=== PATIENT | male | born 1945 | race Caucasian/White ===

== ENCOUNTER 2020-12-01 10:07 | Emergency (ER) | payer MEDICARE, OTHER, SELFPAY ==
[2020-12-01] VITALS (23 sets, daily range): BP systolic 99–150; BP diastolic 57–72; PULSE 70–84; RESP 20–32; TEMP 35.9–36.5; O2SAT 98–100
--- NOTE | 2020-12-01 10:17 | ECG_ITS ---
Measurements Intervals [place] Rate: 71 P: PA: 0 QRS: -3 QRSD: 145 T: -54 QT: 431 QTc: 470 Interpretive Statements ELECTRONIC VENTRICULAR PACEMAKER WITH INHIBITION UNDERLYINAG ATRIAL TACHYCARDIA/FLUTTER NO FURTHER INTERPRETATION IS POSSIBLE ABNORMAL ECG Electronically Signed On 12-01-2020 11:17:03 LINE PALLETIZER by Ej Garcia D.O.
--- NOTE | 2020-12-01 10:41 | ED.GENADULT ---
HPI - General Adult General Chief complaint: Syncope Stated complaint: syncopal Source: patient and family Mode of arrival: EMS Limitations: no limitations History of Present Illness HPI narrative: 74 years old white male, got up got up to go to the bathroom, felt dizzy and possible loss of consciousness, daughter found him on the floor of the bathroom awake, alert and oriented x4. Patient feels weak all over and dizzy if he stands up. Patient is status post CABG, valve replacement, and pacemaker placement in the last few days, got discharged from [facility] yesterday. Patient reports massive diarrhea over the last 24 hours at least 10 times since last night. Patient on Xarelto. Currently patient denying any complaints. Related Data Home Medications Medication Instructions Recorded Confirmed aspirin mg PO DAILY 12/01/20 atorvastatin HS 12/01/20 furosemide DAILY 12/01/20 glimepiride mg DAILY 12/01/20 lisinopril 10 mg DAILY 12/01/20 metoprolol tartrate BID 12/01/20 oxycodone-acetaminophen See Rx Instructions .ROUTE 12/01/20 .COMPLEX PRN pioglitazone mg DAILY 12/01/20 rivaroxaban 20 mg PO DAILY 12/01/20 Allergies Allergy/AdvReac Type Severity Reaction Status Date / Time Penicillins Allergy Unknown Verified 12/01/20 11:02 Review of Systems Review of Systems: Narrative: CONSTITUTIONAL: Denies fever, chills, or sweats. EYES: Denies visual changes, redness, or discharge. ENT: Denies rhinorrhea, congestion, sore throat, or otalgia. CARDIOVASCULAR: Denies chest pain, palpitations, or edema. RESPIRATORY: Denies cough or dyspnea. GASTROINTESTINAL: Denies abdominal pain, nausea, vomiting, or diarrhea. GENITOURINARY: Denies dysuria or hematuria. SKIN: Denies rash or itching. MUSCULOSKELETAL: Denies back pain, joint pain, or myalgia. NEUROLOGIC: Denies headache, numbness, or weakness. PSYCHIATRIC: Denies anxiety or depression. PMFSH Social History Social History Gender identity (if verbalized by the patient): Male Exam Narrative: Exam Narrative: General appearance: Well-developed, well-nourished, ill looking, pale, oxygen by nasal cannula on, daughter at the bedside Skin: Pale, scattered area of bruises of the lower extremities Head: Normocephalic, nontraumatic Eyes: Clear conjunctiva ENT: Oropharynx normal, ears normal, nose normal Neck: Supple, nontender Chest and respiratory: Airway patent, no respiratory distress, no accessory muscle use Heart: Regular rate/rhythm Abdomen: Soft, nontender, no organomegaly, quiet bowel sounds, rectal exam showed dark blackish liquid stool, guaiac positive Vascular: Normal peripheral pulses, normal capillary refill. Musculoskeletal: Normal range of motion, nontender back Neurologic: Alert and oriented ?3, BLOCK GREASER is normal as tested, no gross motor deficit Course Course Emergency Course: Stable Consultations Consultation #1: Dr. López/hospitalist at [facility], accepted transfer Date: 12/01/20 Time: 11:28 Vital Signs Vital signs: Vital Signs Pulse Rate 74 12/01/20 10:22 Respiratory Rate 20 12/01/20 10:22 Blood Pressure 110/62 12/01/20 10:22 Pulse Oximetry 100 12/01/20 10:22 Pulse Rate 73 12/01/20 10:36 Respiratory Rate 26 H 12/01/20 10:36 Blood Pressure 99/61 L 12/01/20 10:36 Pulse Oximetry 100 12/01/20 10:36 Medical Decision Making [facility] Narrative Medical decision making narrative: Patient presents with dizziness, syncope, bloody diarrhea. Labs, IV fluid, type and screen, Protonix IV ordered. Further plan to follow Differential Diagnosis Differential Diagnosis: GI bleed, ortho
[2020-12-01] MEDS: PANTOPRAZOLE SODIUM IV 40 MG VIAL IV PUSH (11:02)
[2020-12-01 11:06] LABS: Mean Corpuscular HGB Conc 31.9 g/dl (32-36); Mean Corpuscular Hemoglobin 29.1 pg (26-34); Mean Corpuscular Volume 91.5 fl (80-100); Mean Platelet Volume 10.6 fl (7.4-10.4); Platelet Count Result 384 k/mm3 (150-375); Red Blood Count 2.23 M/mm3 (4.6-6.20); Red Cell Distribution Width 13.4 % (11.5-14.5); White Blood Count 19.9 K/mm3 (4.5-10.0)
[2020-12-01 11:18] LABS: Alanine Aminotransferase 39 U/L (4-50); Alkaline Phosphatase 53 U/L (38-126); Anion Gap 14 mmol/L (8-16); Aspartate Amino Transferase 72 U/L (17-59); Bilirubin,Total 0.5 mg/dL (0.2-1.3); Blood Urea Nitrogen 53 mg/dL (9-20); Calcium 6.9 mg/dL (8.4-10.2); Carbon Dioxide 17 mmol/L (22-30); Chloride 100 mmol/L (98-107); Estimated CRCL calculation 69 ml/min; Estimated Glomerular Filt Rate > 60; Glucose 275 mg/dL (75-110); Hematocrit 20.4 % (42.0-52.0); Hemoglobin 6.5 g/dL (14.0-18.0); Potassium 4.3 mmol/L (3.4-5.0); Sodium 131 mmol/L (137-145)
[2020-12-01 11:19] LABS: INR 1.2; Prothrombin Time 15.7 Seconds (11.1-14.7)
[2020-12-01 11:20] LABS: Anisocytosis 1+ (NORMAL); Band Neutrophils Percent 3 % (0-6); Lymphocytes Absolute Manual 1.79 K/mm3 (1.1-4.5); Metamyelocytes Percent 1 %; Monocytes Absolute Manual 1.19 K/mm3 (0.1-0.90); Monocytes Percent Manual 6 % (3-9); Neutrophils Absolute Manual 16.71 K/mm3 (1.3-6.7); Neutrophils Percent Manual 81 % (46-73); Nucleated Red Blood Cells 1 %; Partial Thromboplastin Time 30.4 SECONDS (22.3-36.8); Platelet Estimate Adequate (Adequate); Total Cells Counted 100
--- NOTE | 2020-12-01 11:20 | PC.NURSE ---
pt xander O2 @ @ LPM NC. turned down from 4 LPM
[2020-12-01 11:21] LABS: Hypochromasia 1+ (NORMAL); Microcytosis 1+ (NORMAL)
[2020-12-01 11:34] LABS: Troponin I 0.436 ng/mL (0.000-0.034)
--- NOTE | 2020-12-01 11:44 | PC.NURSE ---
report from call center. pt can go to room 407 @ [facility]. Call [phone] to give nurse-nurse report. try to give at least 1 unit prior to transfer if possible.
--- NOTE | 2020-12-01 11:52 | PC.NURSE ---
[facility] accepted transfer to [facility], [place] ETA 1300 Trip #[id number]
--- NOTE | 2020-12-01 13:24 | PC.NURSE ---
unit # 1 started via pump at 75 cc/hr
== END 2020-12-01 13:33 | disposition short-term general hospital (02) ==
PROVIDERS: Emergency Provider Emergency Medicine; PCP Internal Medicine
DX: R55 Syncope and collapse (principal); K92.2 Gastrointestinal hemorrhage, unspecified; Z95.1 Presence of aortocoronary bypass graft; I25.10 Atherosclerotic heart disease of native coronary artery without angina pectoris; Z79.01 Long term (current) use of anticoagulants; Z95.2 Presence of prosthetic heart valve; Z95.0 Presence of cardiac pacemaker
CPT/HCPCS: 36415; 36430; 80053; 84484; 85025; 85610; 85730; 86850; 86900; 86901; 86920; 93005; 96374; 99285; C9113; P9016